=== PATIENT | female | born 1970 | race Caucasian/White ===

== ENCOUNTER 2019-06-01 14:41 | Emergency (ER) | payer OTHER ==
[~2019-06-01] VITALS: Ht 165.1 cm; Wt 77.1 kg
[~2019-06-01 14:41] MED LIST: PORTIA; calcium; lisinopril; metoprolol; multi vit
[2019-06-01 14:44] VITALS: BP_SYST 123
--- NOTE | 2019-06-01 14:51 | NUR ---
Patient to ER bed 5 to gown for evaluation. Side rails up. Report given to MIKE Condon.
--- NOTE | 2019-06-01 15:23 | NUR ---
Pt AAOx4 ambulated into ED c/o 4-12/18 pain to mid lower abd pain x 3 days. Denies dysuria/n/v/d. Pt was referred to ED by urgent care today for further evaluation s/p blood in urinarlysis. Skin pink dry and warm, breathing even and unlabored. No other injuries/complaints per pt/noted. Will continue to monitor. at bedside.
--- NOTE | 2019-06-01 15:28 | NUR ---
PT ambulated to bathroom to provide urine sample
--- NOTE | 2019-06-01 15:41 | NUR ---
ER Dr. Vázquez at bedside examining patient.
[2019-06-01 15:43] LABS: BILIRUBIN,URINE NEGATIVE (NEGATIVE); BLOOD, URINE 2+ (NEGATIVE); CLARITY/URINE CLEAR (CLEAR); COLOR,URINE YELLOW (YELLOW); GLUCOSE,URINE NEGATIVE (NEGATIVE); KETONES,URINE 1+ (NEGATIVE); LEUKOCYTE ESTERASE ,URINE NEGATIVE (NEGATIVE); NITRITE, URINE NEGATIVE (NEGATIVE); PH,URINE 5.5 (5.0-8.0); PROTEIN URINE NEGATIVE (NEGATIVE); UROBILINOGEN,URINE 0.2 (0.2-1.0)
[2019-06-01 16:06] LABS: BACTERIA,URINE FEW /HPF (None Seen); WBC,URINE 0-3 /HPF (0-3)
--- NOTE | 2019-06-01 16:59 | NUR ---
Lab at bedside for blood draw
[2019-06-01 17:15] LABS: BASOPHILS % (AUTO) 0.3 % (0.0-2.0); EOSINOPHILS % (AUTO) 0.4 % (0.0-4.0); HEMATOCRIT 39.3 % (36-48); HEMOGLOBIN 13.3 g/dL (12.0-16.0); LYMPHOCYTES # (AUTO) 1.1 K/uL (1.0-5.5); LYMPHOCYTES % (AUTO) 11.4 % (20.5-51.5); MEAN CORPUSCULAR HEMOGLOBIN 32 pg (27-31); MEAN CORPUSCULAR HGB CONC 34 % (32-36); MEAN CORPUSCULAR VOLUME 93 fL (79.0-98.0); MONOCYTES # (AUTO) 0.8 K/uL (0.0-1.0); MONOCYTES % (AUTO) 8.4 % (1.7-9.3); NEUTROPHILS # (AUTO) 7.6 K/uL (1.8-7.7); NEUTROPHILS % (AUTO) 79.5 % (40.0-70.0); PLATELET COUNT (AUTO) 208 K/uL (130-430); RED BLOOD CELL COUNT(AUTO) 4.21 MIL/uL (4.2-6.2); RED CELL DISTRIBUTION WIDTH 13.1 % (9.0-15.0); WHITE BLOOD COUNT (AUTO) 9.6 K/uL (4.8-10.8)
[2019-06-01 17:22] LABS: CALCIUM 8.8 mg/dL (8.4-11.0); CREATININE 0.67 mg/dL (0.55-1.30); POTASSIUM 3.6 mmol/L (3.5-5.1)
[2019-06-01 17:26] LABS: ALBUMIN 3.6 g/dL (3.4-4.8); TOTAL BILIRUBIN 0.7 mg/dL (0.0-1.0)
[2019-06-01] MEDS ORDERED: KETOROLAC TROMETHAMINE 15 MG VIAL IVP ONE (18:45)
--- NOTE | 2019-06-01 18:45 | NUR ---
Pt taken to [facility] for CT scan with contrast via BLS.
--- NOTE | 2019-06-01 19:30 | NUR ---
CT Consent and labs sent to [place] [facility].
--- NOTE | 2019-06-01 20:06 | NUR ---
Brought back from [facility] Radiology Department via BLS transport.
[2019-06-01] MEDS ORDERED: KETOROLAC TROMETHAMINE 30 MG VIAL IVP ONE (21:30)
--- NOTE | 2019-06-01 21:42 | NUR ---
Patient given written and verbal discharge instructions and verbalizes understanding. ER MD discussed with patient the results and treatment provided. Patient in stable condition. ID arm band removed. IV catheter removed intact and dressing applied, no active bleeding. Rx of Cipro and Flagyl given. Patient educated on pain management and to follow up with PMD. Pain Scale 4/10. Opportunity for questions provided and answered. Medication side effect fact sheet provided.
[2019-06-01 21:49] VITALS: BP_SYST 129
== END 2019-06-01 21:42 | disposition home or self-care (01) ==
LOC: SED 14:41
DX: K57.92 Diverticulitis of intestine, part unspecified, without perforation or abscess without bleeding (principal); I10 Essential (primary) hypertension
CPT/HCPCS: 36415; 74177; 80053; 81000; 81025; 83690; 85025; 96374; 96376; 99284; J1885 ×2